=== PATIENT | male | born 1955 | race Caucasian/White ===

== ENCOUNTER 2019-05-04 12:55 | Outpatient (CLI) | payer OTHER, SELFPAY ==
--- NOTE | 2019-05-04 15:00 | NEURO_ITS ---
Patient Number: [id number] Impression: # Complains of numbness of hands. # Carpal Tunnel Syndrome bilaterally, left more than right. # No ulnar neuropathy. # Normal needle/EMG exam. Nerve Conduction Studies Anti Sensory Summary Table Stim Site NR Peak (ms) P-T Amp (?V) Site1 Site2 Delta-P (ms) Dist (cm) Rafita (m/s) Left Median Anti Sensory (2-3nd Digit) Wrist 4.7 13.2 Wrist 2-3nd Digit 4.7 14.0 30 Wrist 4.4 8.8 Wrist 2-3nd Digit 4.7 14.0 30 Right Median Anti Sensory (2-3nd Digit) Wrist 3.9 5.3 Wrist 2-3nd Digit 3.9 14.0 36 Wrist 4.8 20.1 Wrist 2-3nd Digit 3.9 14.0 36 Left Radial Anti Sensory (Base 1st Digit) Wrist 2.1 21.1 Wrist Base 1st Digit 2.1 0.0 Right Radial Anti Sensory (Base 1st Digit) Wrist 2.2 17.9 Wrist Base 1st Digit 2.2 0.0 Left Ulnar Anti Sensory (5th Digit) Wrist 2.3 19.6 Wrist 5th Digit 2.3 14.0 61 Right Ulnar Anti Sensory (5th Digit) Wrist 2.4 32.7 Wrist 5th Digit 2.4 14.0 58 Motor Summary Table Stim Site NR Onset (ms) O-P Amp (mV) Site1 Site2 Delta-0 (ms) Dist (cm) Rafita (m/s) Left Median Motor (Abd Poll Brev) Wrist 4.8 0.3 Elbow Wrist 4.8 28.0 58 Elbow 9.6 0.6 Right Median Motor (Abd Poll Brev) Wrist 4.1 0.7 Elbow Wrist 5.4 28.0 52 Elbow 9.5 0.7 Left Ulnar Motor (Abd Dig Minimi) Wrist 3.1 1.9 A Elbow Wrist 5.1 28.0 55 A Elbow 8.2 1.2 Right Ulnar Motor (Abd Dig Minimi) Wrist 3.0 3.9 A Elbow Wrist 5.4 29.0 54 A Elbow 8.4 2.2 F Wave Studies NR F-Lat (ms) L-R F-Lat (ms) Left Median (Mrkrs) (Abd Poll Brev) 28.25 0.29 Right Median (Mrkrs) (Abd Poll Brev) 28.54 0.29 Left Ulnar (Mrkrs) (Abd Dig Min) 30.12 0.45 Right Ulnar (Mrkrs) (Abd Dig Min) 29.67 0.45 EMG Side Muscle Nerve Root Ins Act Fibs Amp Dur Recrt Comment Right 1stDorInt Ulnar C8-T1 Nml Nml Nml Nml Nml Right Ext Indicis Radial (Post Int) C7-8 Nml Nml Nml Nml Nml Right Ext Digitorum Radial (Post Int) C7-8 Nml Nml Nml Nml Nml Right BrachioRad Radial C5-6 Nml Nml Nml Nml Nml Right PronatorTeres Median C6-7 Nml Nml Nml Nml Nml Right Abd Poll Brev Median C8-T1 Nml Nml Nml Nml Nml Left 1stDorInt Ulnar C8-T1 Nml Nml Nml Nml Nml Left Ext Indicis Radial (Post Int) C7-8 Nml Nml Nml Nml Nml Left Ext Digitorum Radial (Post Int) C7-8 Nml Nml Nml Nml Nml Left BrachioRad Radial C5-6 Nml Nml Nml Nml Nml Left PronatorTeres Median C6-7 Nml Nml Nml Nml Nml Left Abd Poll Brev Median C8-T1 Nml Nml Nml Nml Nml MTDD
== END 2019-05-04 12:56 | disposition home or self-care (01) ==
PROVIDERS: PCP Family Medicine; Visit Provider Nurse Practitioner
DX: G56.03 Carpal tunnel syndrome, bilateral upper limbs (principal)
CPT/HCPCS: 95886; 95911

== ENCOUNTER 2019-11-07 01:34 | Outpatient (CLI) | payer OTHER, SELFPAY ==
[2019-11-07 19:24] LABS: SARS-CoV-2 RNA PCR Negative
== END 2019-11-07 01:35 | disposition home or self-care (01) ==
LOC: ANHCOVIDDT 01:34
PROVIDERS: PCP Family Medicine; Visit Provider Internal Medicine Gastroenterology
DX: Z01.812 Encounter for preprocedural laboratory examination (principal); Z20.828 Contact with and (suspected) exposure to other viral communicable diseases
CPT/HCPCS: 87635; C9803; U0003

== ENCOUNTER 2019-11-09 00:52 | Day surgery (SDC) | payer OTHER, SELFPAY ==
[2019-11-02 12:49] VITALS: BMI 33.5
--- NOTE | 2019-11-09 09:04 | WPDGICN ---
Assessment and Plan Assessment and plan (1) History of rectal cancer: Code(s): Z85.048 - Personal history of other malignant neoplasm of rectum, rectosigmoid junction, and anus Status: Acute Assessment and Plan: Plan is for surveillance exam of his colon. Patient has distant history of rectal cancer Repeat dissected 10 years ago. last exam 5 years ago was unremarkable. (2) Rectal pain: Code(s): K62.89 - Other specified diseases of anus and rectum Status: Acute Assessment and Plan: Patient has new rectal discomfort. This will be evaluated by endoscopy. Plan is for Anusol or preparation H initially. Stool softeners may be of some benefit. GI Consult Note Consult date/time: 11/09/19 09:04 HPI: Juan David Walton is a 64 year old male Seen in evaluation at the request of Dr. Parker. Patient has a history of rectal carcinoma resected 10 years ago. Last colonoscopy for evaluation was 5 years ago. Patient has done well until the last 2 weeks. Over the last 2 weeks has had rectal discomfort. He notices this primarily on sitting. He denies any change in bowel habits. His bowel habits are regular. He denied any blood in his stools. His weight has remained stable. Family history is noncontributory. Review of Systems Review of Systems: All systems reviewed & are unremarkable except as noted in HPI and below PMFSH Past Medical History Medical History (Updated 11/09/19 @ 09:05 by Eric Garcia MD) Essential (primary) hypertension Gout, unspecified History of rectal cancer Hyperlipidemia Type 2 diabetes mellitus without complication, without long-term current use of insulin Social History Social History Smoking status: Never smoker Alcohol intake: current Alcohol use details: 2-3 PER YEAR Substance use: never Substance use type: does not use Living arrangements: alone Spiritual care concerns: No Meds Home Medications and Allergies Home Medications Medication Instructions Recorded Confirmed Type dexmethylphenidate 10 mg tablet 10 mg PO DAILY 01/23/19 11/02/19 History indomethacin 50 mg capsule 50 mg PO TID PRN cap 01/23/19 11/02/19 History multivitamin 1 tablet PO DAILY 01/23/19 11/02/19 History vilazodone 40 mg tablet 40 mg PO DAILY 01/23/19 11/02/19 History zolpidem 10 mg tablet 10 mg PO DAILY tablet 01/23/19 11/02/19 History lovastatin 20 mg tablet 20 mg PO DAILY #90 tablet 07/11/19 11/02/19 Rx metformin 500 mg tablet 500 mg PO BID #180 tablet 08/15/19 11/02/19 Rx allopurinol 300 mg PO DAILY 11/02/19 11/02/19 History lisinopril 40 mg PO DAILY 11/02/19 11/02/19 History Allergies Allergy/AdvReac Type Severity Reaction Status Date / Time No Known Allergies Allergy Unknown Verified 02/14/19 14:25 Exam Narrative: Exam Narrative: Physical exam reveals patient to be alert. Vital signs stable. HEENT exam unremarkable. Lungs are clear to auscultation and percussion. Heart is without murmur or extra sounds. Abdominal exam bowel sounds are present soft nontender with no organomegaly. Digital external rectal exam is unremarkable.
[2019-11-09 09:12] LABS: Glucose Point of Care 116 (65-105)
[2019-11-09 09:14] VITALS: BP 162/81; PULSE 62; RESP 18; TEMP 36.2; O2SAT 100; BMI 34.0
[2019-11-09] MEDS: LACTATED RINGERS 1,000 ML 150 ML IV CONT (09:18)
--- NOTE | 2019-11-09 09:23 | WPDANESEPPF ---
Anes - Initial Pre Proc Eval Procedure: Operation Date: 11/09/19 09:30 Proposed Procedures p Screening Colonoscopy - Eric Garcia MD Date/Time: 11/09/19 09:23 Surgeon: Eric Garcia MD Pre Op Diagnosis: neoplasm screening, hx rectal ca Patient Data Age: 64 Gender: M Height: 5 ft 8 in Weight: 101.6 kg Last Vital Signs Temp 97.1 F L 11/09/19 09:14 Pulse 62 11/09/19 09:14 Resp 18 11/09/19 09:14 BP 162/81 H 11/09/19 09:14 Pulse Ox 100 11/09/19 09:14 Allergies Allergy/AdvReac Type Severity Reaction Status Date / Time No Known Allergies Allergy Unknown Verified 11/09/19 09:12 Home Medications Medication Instructions Recorded Confirmed Type dexmethylphenidate 10 mg tablet 10 mg PO DAILY 01/23/19 11/09/19 History indomethacin 50 mg capsule 50 mg PO TID PRN cap 01/23/19 11/09/19 History multivitamin 1 tablet PO DAILY 01/23/19 11/09/19 History vilazodone 40 mg tablet 40 mg PO DAILY 01/23/19 11/09/19 History zolpidem 10 mg tablet 10 mg PO DAILY tablet 01/23/19 11/09/19 History lovastatin 20 mg tablet 20 mg PO DAILY #90 tablet 07/11/19 11/09/19 Rx metformin 500 mg tablet 500 mg PO BID #180 tablet 08/15/19 11/09/19 Rx allopurinol 300 mg PO DAILY 11/02/19 11/09/19 History lisinopril 40 mg PO DAILY 11/02/19 11/09/19 History Laboratory Tests 11/09/19 09:08 POC Capillary Glucose 116 mg/dl H mg/dl (65-105) Patient hx anesthesia problems: none Family hx anesthesia problems: none PMFSH Past Medical History Medical History (Updated 11/09/19 @ 09:05 by Eric Garcia MD) Essential (primary) hypertension Gout, unspecified History of rectal cancer Hyperlipidemia Type 2 diabetes mellitus without complication, without long-term current use of insulin Social History Social History Smoking status: Never smoker Alcohol intake: current Alcohol use details: 2-3 PER YEAR Substance use: never Substance use type: does not use Living arrangements: alone Spiritual care concerns: No Anes - Eval Final PreProcedure Day of Procedure 11/09/19 09:23 Patient weight: obese Heart: regular rate and rhythm Lungs: clear to auscultation Airway: Mallampati scale class II Neurological: alert and oriented Last oral intake: >/= 8 hours ASA classification: III Emergent: no Anesthetic plan: proceed Anesthesia type and monitoring: general GIVS and standard monitoring Informed Consent: The patient's anesthetic plan and its attendant risks and benefits were discussed with the patient/family/POA. Questions were solicited and answers provided to the satisfaction of the patient/family/POA.
[2019-11-09 10:06] VITALS: BP 115/71; PULSE 67; RESP 15; O2SAT 99
[2019-11-09 10:16] VITALS: BP 119/66; PULSE 54; RESP 19; O2SAT 94
== END 2019-11-09 10:37 | disposition home or self-care (01) ==
PROVIDERS: Visit Provider Internal Medicine Gastroenterology
PROC: 0DJD8ZZ Inspection of Lower Intestinal Tract, Via Natural or Artificial Opening Endoscopic (ICD-10-PCS; CPT 45378; principal; 2019-11-09 09:30)
DX: Z12.11 Encounter for screening for malignant neoplasm of colon (principal); K64.8 Other hemorrhoids; K62.89 Other specified diseases of anus and rectum; Z85.048 Personal history of other malignant neoplasm of rectum, rectosigmoid junction, and anus; I10 Essential (primary) hypertension; E78.2 Mixed hyperlipidemia; E11.9 Type 2 diabetes mellitus without complications; M10.9 Gout, unspecified; Z79.84 Long term (current) use of oral hypoglycemic drugs; E66.9 Obesity, unspecified; Z68.34 Body mass index [BMI] 34.0-34.9, adult
CPT/HCPCS: G0105; J2704; J7120

== ENCOUNTER 2021-06-13 15:19 | Outpatient (CLI) | payer OTHER, SELFPAY ==
--- NOTE | ~2021-06-13 | MR_ITS ---
EXAMINATION: MR knee LT wo con DATE: 06/13/2021 16:09 INDICATION: Left knee pain. TECHNIQUE: Magnetic resonance imaging (MRI) of the left knee was performed without intravenous contra st. Sequences included axial PD-weighted FS FSE, coronal PD-weighted FSE and PD-weighted FS FSE, sagi ttal PD-weighted FSE, and sagittal T2-weighted FS FSE. COMPARISON: None. FINDINGS: Medial compartment: There is a complex tear involving body and posterior horn of medial meniscus. There is shallow partia l-thickness cartilage loss of tibial condyle with mild subchondral edema-like signal intensity involv ing the medial articular surface. There is partial-thickness cartilage loss of femoral condyle, deep at the central articular surface. Osteophytes are noted. Lateral compartment: There is a complex tear involving anterior horn and body of lateral meniscus. There is shallow partia l-thickness cartilage loss of tibial condyle. There is shallow partial-thickness cartilage loss of fe moral condyle. Osteophytes are noted. Patellofemoral compartment: There is full-thickness cartilage loss of patellar lateral facet and median ridge with cortical remod eling and mild subchondral edema-like marrow signal intensity. There is full-thickness cartilage loss of lateral and central trochlea with cortical remodeling and mild subchondral edema-like marrow sign al intensity. Osteophytes are noted. Ligaments and tendons: The anterior cruciate ligament is normal. There is a partial tear of posterior cruciate ligament kasandra acterized by thickening and increased signal intensity. There are changes of prior sprains of fibular collateral ligament and medial collateral ligament characterized by thickening and increased signal intensity approximately. There is mild patellar tendinopathy. Fluid: There is a large knee joint effusion with loose bodies. There is a large Bravo's cyst with loose bodi es. There is mild superficial infrapatellar bursitis. IMPRESSION: 1. Severe chondrosis of patellofemoral compartment, moderate chondrosis of medial compartment, and mi ld chondrosis of lateral compartment. 2. Tears of medial and lateral menisci. 3. Partial tear of posterior cruciate ligament. 4. Large knee joint effusion with loose bodies. 5. Large Bravo's cyst with loose bodies. Reviewed, dictated and finalized at location A. IMPRESSION: 1. Severe chondrosis of patellofemoral compartment, moderate chondrosis of medi al compartment, and mild chondrosis of lateral compartment. 2. Tears of medial and lateral menisci. 3. Partial tear of posterior cruciate ligament. 4. Large knee joint effusion with loose bodies. 5. Large Bravo's cyst with loose bodies.
== END 2021-06-13 15:20 | disposition home or self-care (01) ==
PROVIDERS: PCP Family Medicine; Visit Provider Nurse Practitioner
DX: M23.42 Loose body in knee, left knee (principal); S83.282A Other tear of lateral meniscus, current injury, left knee, initial encounter; S83.242A Other tear of medial meniscus, current injury, left knee, initial encounter; X58.XXXA Exposure to other specified factors, initial encounter; M25.462 Effusion, left knee
CPT/HCPCS: 73721

== ENCOUNTER 2021-12-03 09:41 | Outpatient (CLI) | payer OTHER, SELFPAY ==
--- NOTE | 2021-12-03 09:46 | ECG_ITS ---
Measurements Intervals [place] Rate: 72 P: -1 KS: 194 QRS: -89 QRSD: 140 T: 2 QT: 379 QTc: 417 Interpretive Statements SINUS RHYTHM RIGHT BUNDLE BRANCH BLOCK [120+ ms QRS DURATION, UPRIGHT V1, 40+ ms S IN I/aVL/V4/V5/V6] LEFT ANTERIOR FASCICULAR BLOCK [QRS AXIS <= -45, QR IN I, RS IN II] NO PREVIOUS ECG AVAILABLE FOR COMPARISON Electronically Signed On 12-03-2021 13:14:24 CDT by Delmis Chowdhury M.D.
[2021-12-03 10:30] LABS: Basophils Absolute Auto 0.1 K/mm3 (0.0-0.1); Basophils Percent Auto 0.8 % (0.2-1.2); Eosinophils Absolute Auto 0.1 K/mm3 (0-0.3); Eosinophils Percent Auto 1.5 % (0-4.4); Hematocrit 43.4 % (42.0-52.0); Immature Granulocyte Absolute 0.03 K/mm3 (0.00-0.031); Immature Granulocyte Percent A 0.4 % (0-0.5); Lymphocytes Absolute Auto 2.37 K/mm3 (0.9-3.2); Lymphocytes Percent Auto 32.6 % (18.3-44.2); Mean Corpuscular HGB Conc 34.6 g/dl (32-36); Mean Corpuscular Hemoglobin 29.9 pg (26-34); Mean Corpuscular Volume 86.5 fl (80-100); Mean Platelet Volume 8.9 fl (7.4-10.4); Monocytes Absolute Auto 0.6 K/mm3 (0.1-0.6); Monocytes Percent Auto 8.5 % (2.6-8.5); Neutrophils Absolute Auto 4.1 K/mm3 (1.3-6.7); Neutrophils Percent Auto 56.2 % (45.5-73.1); Platelet Count Result 261 k/mm3 (150-375); Red Blood Count 5.02 M/mm3 (4.6-6.20); Red Cell Distribution Width 13.1 % (11.5-14.5); White Blood Count 7.3 K/mm3 (4.5-10.0)
[2021-12-03 10:44] LABS: Alanine Aminotransferase 21 U/L (6-50); Albumin Level 4.2 g/dL (3.5-5.1); Alkaline Phosphatase 90 U/L (38-126); Anion Gap 9 mmol/L (8-16); Aspartate Amino Transferase 27 U/L (17-59); Bilirubin,Total 0.6 mg/dL (0.2-1.3); Blood Urea Nitrogen 15 mg/dL (9-20); Calcium 8.7 mg/dL (8.4-10.2); Carbon Dioxide 29 mmol/L (22-30); Chloride 97 mmol/L (98-107); Estimated Glomerular Filt Rate > 60; Glucose 79 mg/dL (65-110); Potassium 4.2 mmol/L (3.4-5.0); Sodium 135 mmol/L (137-145)
[2021-12-03 11:15] LABS: Carcinoembryonic Antigen 1.4 ng/mL (0.0-3.0)
== END 2021-12-03 09:42 | disposition home or self-care (01) ==
LOC: ANHSURGERY 09:43
PROVIDERS: PCP Family Medicine; Visit Provider Surgery
DX: K60.3 Anal fistula (principal); E11.9 Type 2 diabetes mellitus without complications; I44.4 Left anterior fascicular block; I45.10 Unspecified right bundle-branch block
CPT/HCPCS: 36415; 80053; 82378; 85025; 93005

== ENCOUNTER 2021-12-15 01:03 | Day surgery (SDC) | payer OTHER, SELFPAY ==
[2021-12-01 10:02] VITALS: BMI 36.6
--- NOTE | 2021-12-01 10:11 | PC.NURSE ---
PRE-OP INSTRUCTIONS, PLEASE READ CAREFULLY Report to the Outpatient Waiting Room, entrance under the green pavilion located off [facility], at time _0600_ on date _12/15/21_. Planned Procedure Time: _0730_. Time changes happen often and if your time is changed the preop area will call you the afternoon before. - You and your visitor will be asked to self-screen and do not enter if you have any COVID symptoms. - We encourage only one visitor and NO visitors under age 16 are allowed at this time. Your visitor will receive communication by the phone number that is given day of service. - The patient visitor is requested to social distance or may leave the building when not with patient due to restrictions. - A mask is required within the hospital. Patients may have clear liquids (water, carbonated beverages, clear teas, apple juice) until 3 hours prior to surgery (0430 AM) with a maximum of 20 ounces. - No food from midnight until time of surgery - Infants may have breast milk until 4 hours before surgery, infant formula 6 hours prior to surgery. - Children will be allowed to drink immediately following surgery. If applicable, please bring a bottle or sippy cup to assist with drinking. Juice, water, soda, and popsicles are readily available. For infants on formula, please bring formula the day of surgery. Pacifiers are allowed. Take the following medications with a SIP of water the morning of surgery: _NONE_ Medications to discontinue per ANESTHESIA - _MULTIVITAMIN 3 DAYS PRIOR TO SURGERY, Date to take last dose 12/11/21_ Please no make-up, nail english, hairspray, perfume, deodorant, or body powder the day of surgery. No jewelry (including any body piercings) or valuables the day of surgery, leave them at home. Please take a shower or bath the night before, or the morning of, surgery with an antibacterial soap. Wear comfortable, loose fitting clothing. - Jewelry must be removed prior to entering the operating room. Rings and piercings that are not removed may be cut off. - The hospital will not accept responsibility for valuables. - Please leave all valuables, including medications, at home the day of surgery. If you are going home after surgery, a licensed four horse hitch driver must drive you home. - NO public transportation without another adult. - We recommend that an adult stay with you for 24 hours following discharge. - We also recommend that you do not drive, make important decision, drink alcoholic beverages, or take any drugs that were not prescribed by your health care provider for at least 24 hours after your discharge time. Follow any additional instructions given to you from your surgeon. If you or anyone in your household have experienced Covid symptoms in the past week, please notify your surgeon or the nurse liaison at the phone number below for possible testing. Telephone instructions given to ___PT and asked if any additional questions and then verbalized understanding. Patient advised to call surgeon office or pre surgery nurse liaison [phone] if any additional questions.
[2021-12-15] VITALS (8 sets, daily range): BP systolic 142–171; BP diastolic 71–92; PULSE 54–66; RESP 14–16; TEMP 36.4; O2SAT 96–100
[2021-12-15] MEDS: LACTATED RINGERS 1,000 ML 30 ML IV CONT (06:55)
--- NOTE | 2021-12-15 07:05 | WPDANESEPPF ---
Anes - Initial Pre Proc Eval Procedure: Operation Date: 12/15/21 07:30 Proposed Procedures p Rectal Exam Under Anesthesia with Fistulotomy - Sukumar Escobar MD Date/Time: 12/15/21 07:05 Surgeon: Sukumar Escobar MD Pre Op Diagnosis: anal fistula Patient Data Age: 66 Gender: M Height: 1.73 m Weight: 100.5 kg Last Vital Signs Temp 97.5 F L 12/15/21 06:26 Pulse 58 L 12/15/21 06:26 Resp 16 12/15/21 06:26 BP 142/71 H 12/15/21 06:26 Pulse Ox 98 12/15/21 06:26 O2 Del Method Room Air 12/15/21 06:26 Allergies Allergy/AdvReac Type Severity Reaction Status Date / Time No Known Allergies Allergy Unknown Verified 12/15/21 06:17 Home Medications Medication Instructions Recorded Confirmed Type multivitamin 1 tablet PO DAILY 01/23/19 12/15/21 History zolpidem 10 mg tablet (Ambien) 10 mg PO DAILY PRN Sleep 01/23/19 12/15/21 History dexmethylphenidate 10 mg 10 mg PO DAILY PRN Cough 05/21/21 12/15/21 History capsule,extended release [id number] (Focalin XR) metformin 500 mg tablet 500 mg PO BID #180 tabs 08/28/21 12/15/21 Rx allopurinol 300 mg tablet 300 mg PO DAILY #90 tabs 10/01/21 12/15/21 Rx lisinopril 40 mg tablet 40 mg PO DAILY #90 tabs 10/01/21 12/15/21 Rx lovastatin 20 mg tablet 20 mg PO QHS #90 tabs 10/01/21 12/15/21 Rx hydrocortisone 2.5 % topical cream 1 applic RECTAL DAILY PRN 10/28/21 12/15/21 Rx with perineal applicator hemorrhoids #30 grams (Anusol-HC) indomethacin 50 mg capsule 50 mg PO TID PRN Inflammation #30 10/28/21 12/15/21 Rx caps vilazodone 20 mg tablet 20 mg PO DAILY 12/01/21 12/15/21 History Patient hx anesthesia problems: none Family hx anesthesia problems: none Results Review: All pre-operative results and documents have been reviewed as part of the pre-operative evaluation. [facility] Past Medical History Medical History Essential (primary) hypertension Gout, unspecified History of rectal cancer Hyperlipidemia Type 2 diabetes mellitus without complication, without long-term current use of insulin Surgical History Surgical History History of colon resection Family History Family History Sibling Family history of alcoholism Father Cerebrovascular accident Mother Family history of malignant neoplasm of breast in first degree relative Other Heart disease Social History Social History Smoking status: Never smoker Second hand tobacco smoke exposure: No Alcohol intake: current Alcohol use details: 2-3 DRINKS/YEAR Substance use: never Substance use type: does not use Living arrangements: alone Spiritual care concerns: No Anes - Eval Final PreProcedure Day of Procedure 12/15/21 07:05 Patient weight: obese Heart: regular rate and rhythm Lungs: clear to auscultation Airway: Mallampati scale class III Neurological: alert and oriented Last oral intake: >/= 8 hours ASA classification: III Emergent: no Anesthetic plan: proceed Anesthesia type and monitoring: general ETT and standard monitoring Results Review: All pre-operative results and documents have been reviewed as part of the pre-operative evaluation. Informed Consent: The patient's anesthetic plan and its attendant risks and benefits were discussed with the patient/family/POA. Questions were solicited and answers provided to the satisfaction of the patient/family/POA.
[2021-12-15] MEDS: KETOROLAC 15 MG/ML VIAL (*BKC) IV PUSH (07:14)
[2021-12-15] MEDS: ACETAMINOPHEN 500 MG TABLET 1000 MG PO (07:14)
--- NOTE | 2021-12-15 07:16 | WPDHPUPDATE1 ---
History and Physical Update Update Date/Time: 12/15/21 07:16 History and Physical has been reviewed, including an updated exam of the patient. There are NO changes in the patient's condition. Risks, benefits, and alternatives have been discussed and questions answered. Patient agrees to proceed with procedure.
[2021-12-15] MEDS: ceFAZolin 2 GM/D5W 50 ML 2 GM/50 ML BAG IVPB (07:27)
[2021-12-15 07:50] LABS: Glucose Point of Care 128 mg/dl (65-105)
[2021-12-15] MEDS: BUPIVACAINE/EPINEPHRINE 0.25% 50 ML VIAL 20 ML INFILTRATE (08:03)
[2021-12-15] MEDS: METHYLENE BLUE 0.5% INJ 10 ML AMPULE 20 ML IRRIGATION (08:04)
[2021-12-15 08:36] LABS: Glucose Point of Care 144 mg/dl (65-105)
--- NOTE | 2021-12-15 08:49 | W.PM.PROC2 ---
Procedure Note - Detailed Date of Procedure 12/15/21 Pre-op Diagnosis 1. Posterior anal fistula 2. Thrombosed right anterior lateral external hemorrhoid Post-op Diagnosis Same Procedure Performed 1. Posterior anal fistulotomy 2. Excision of right anterolateral thrombosed external hemorrhoid with anoplasty 3. Anorectal examination under anesthesia. Surgeon Sukumar Escobar MD Brick Chimney Supervisor MEENAKSHI Maloney, OR 1st assist Anesthesia General Indications Patient has had chronic periodic drainage from the ano-rectal area which it occurs intermittently and is occasionally bloody and purulent. Findings Patient had a fairly short posterior anal fistula which opened on the inside just above the internal anal sphincter mechanism. Patient also found to have an approximately 1 x 0.5 cm oval thrombosed external hemorrhoid in the right anterior lateral position. Description of Procedure Patient was brought to the operating room and general anesthesia was induced via oral tracheal tube while he was on the OR cart. He was then rolled and carefully padded, face down in the modified knee-chest position. He was then appropriately prepped with Betadine and carefully draped. Subsequent examination under anesthesia was completed using the 2 smaller anal retractors. Initial examination under anesthesia revealed a opening directly posterior suggestive of a external opening of an anal fistula. Also noted was a right anterior lateral possible thrombosed external hemorrhoid with a 1 x 0.5 cm oval hard nodule present. This was right at the anal verge. Deeper inspection of the rectum revealed no significantly large internal hemorrhoids at this time. Following this we 1st addressed the fistula. A 20 gauge Angiocath was opened in a sterile manner and inserted into the external opening. As I was gently inserting this it came out through the tract superficially just above the internal anal sphincter muscle posteriorly. Therefore it was removed and replaced with a lacrimal duct probe along the length of the fistula which was probably about 1 cm long. Local anesthetic using 0.25% Marcaine with epinephrine was infiltrated around this area and allowed to work for 30 seconds. Following this a needle-point Bovie cautery was used to open the skin directly over the probe and hemostasis achieved. I extended the internal incision about 1 cm higher to be sure that there was no extending tract and did not see any sign of an extending tract going more cephalad. Following this we addressed the right anterior lateral external hemorrhoid. A medium-size anal retractor was inserted and positioned to give a clear view of the right richmond-lateral hemorrhoidal complex. Local anesthetic was infiltrated underneath this external hemorrhoid and around it using 0.25% Marcaine with epinephrine. Following this with good visualization and retraction a elliptical excision was started at the anal verge and brought around the skin overlying the small external hemorrhoid that had a palpable nodule within it. This ended about 2 cm distal to the anal verge. Because of the swelling with local anesthetic injection after initial excision I did not feel that I had the nodule within the excision, therefore some further palpation within the wound revealed the nodule slightly deeper. This was grasped with a hemorrhoid grasping forceps and elevated and using needlepoint Bovie cautery I carefully excise this from the underlying subcutaneous tissues. As I did this I did open a clotted hemorrhoidal vein and then deepened the excision to remove all of the abnormally clotted veins in the area. I then used Bovie cautery to achieve hemostasis in the wound. Following this anoplasty was completed by starting a 3-0 Vicryl at the upper end of the incision internally and running this with every other bite grasping a little bit of the underlying muscular tissue. It was run out to the external end of the incision closing it completely and burying
== END 2021-12-15 10:17 | disposition home or self-care (01) ==
PROVIDERS: PCP Family Medicine; Visit Provider Surgery
PROC: (CPT 46275; principal; 2021-12-15 07:30)
DX: K60.3 Anal fistula (principal); K64.5 Perianal venous thrombosis; E11.9 Type 2 diabetes mellitus without complications; I10 Essential (primary) hypertension; E78.5 Hyperlipidemia, unspecified; M10.9 Gout, unspecified; Z85.048 Personal history of other malignant neoplasm of rectum, rectosigmoid junction, and anus; Z79.84 Long term (current) use of oral hypoglycemic drugs; E66.9 Obesity, unspecified; Z68.33 Body mass index [BMI] 33.0-33.9, adult
CPT/HCPCS: 46275; 46320; 82948; 88304; A9270; J0330; J0690; J1885; J2250; J2405; J2704; J3010; J7120; Q9968

== ENCOUNTER 2022-04-06 09:08 | Emergency (ER) | payer OTHER, SELFPAY ==
--- NOTE | 2022-04-06 09:22 | ED.URI ---
HPI - URI/Sore Throat General Chief Complaint: Upper Respiratory Infection Stated Complaint: cov pso Time Seen by Provider: 04/06/22 10:21 Source: patient and RN notes reviewed Mode of arrival: ambulatory Limitations: no limitations History of Present Illness HPI Narrative: 67-year-old male presents concern for positive COVID test. Reports over 2 week history of symptoms mostly have resolved except for his sinus congestion and pressure. He denies cough, shortness of breath, fever, aches, chills sweats. Reports fatigue. Reports he has been using [employer] elicited complaint: rhinorrhea and nasal congestion Related Data Home Medications Medication Instructions Recorded Confirmed multivitamin 1 tablet PO DAILY 01/23/19 04/06/22 zolpidem 10 mg tablet (Ambien) 10 mg PO DAILY PRN Sleep 01/23/19 04/06/22 dexmethylphenidate 10 mg 10 mg PO DAILY PRN Cough 05/21/21 04/06/22 capsule,extended release [id number] (Focalin XR) vilazodone 20 mg tablet 20 mg PO DAILY 12/01/21 04/06/22 Allergies Allergy/AdvReac Type Severity Reaction Status Date / Time No Known Allergies Allergy Unknown Verified 04/06/22 09:35 Review of Systems Review of Systems: CONSTITUTIONAL: Denies malaise, chills, sweats, or fever. Reports fatigue EYES: Denies visual changes, redness, or discharge. ENT: Reports rhinorrhea, congestion, sinus pain. Denies otalgia and sore throat. CARDIOVASCULAR: Denies chest pain, palpitations, or edema. RESPIRATORY: Denies cough. Denies dyspnea. GASTROINTESTINAL: Denies abdominal pain, nausea, vomiting, diarrhea SKIN: Denies rash or itching. MUSCULOSKELETAL: Denies myalgia. NEUROLOGIC: Denies headache. All systems reviewed & are unremarkable except as noted in HPI and below PMFSH Past Medical History Medical History (Updated 04/06/22 @ 10:21 by Mercedes Pacheco NP) Essential (primary) hypertension Gout, unspecified History of rectal cancer Hyperlipidemia Type 2 diabetes mellitus without complication, without long-term current use of insulin Surgical History Surgical History (Updated 12/30/21 @ 09:00 by Dipti Patrick) Anal fistula 12/15/2021 - Posterior anal fistulotomy, excision of right anterolateral thrombosed external hemorrhoid with anoplasty, anorectal examination under anesthesia History of colon resection Family History Family History Sibling Family history of alcoholism Father Cerebrovascular accident Mother Family history of malignant neoplasm of breast in first degree relative Other Heart disease Social History Social History Smoking status: Never smoker Second hand tobacco smoke exposure: No Alcohol intake: current Alcohol use details: 2-3 DRINKS/YEAR Substance use: never Substance use type: does not use Living arrangements: alone Spiritual care concerns: No Comments At time of signature, agree with nursing past medical, surgical, social and family history. There is no relevant family history pertinent to the presenting complaint Exam Narrative: GENERAL: Well-appearing, well-nourished, and in no acute distress. HEAD: Normocephalic EYES: PERRLA, conjunctivae clear ENT: Nares clear, turbinates edematous and erythematous, yellow discharge. Mucous membranes moist. TM pearly trevino with dull light reflex bilaterally; no tragal tenderness. Oropharynx not erythematous without lesions. Tonsils not enlarged and without exudate, no drooling, no hoarseness, no trismus, uvula midline. NECK: Supple. No lymphadenopathy CHEST: Clear to auscultation, breath sounds equal. No wheezing, rhonchi, rales, or stridor. No respiratory distress, speaks in full sentences. HEART: Regular rate and rhythm. No murmur heard. SKIN: Warm, dry, no rash. NEURO: Alert and oriented x3. PSYCH: Normal mood and affect Course Course Emergency Course: Patient is aware of diagnosis,
[2022-04-06 09:32] VITALS: BP 142/68; PULSE 79; RESP 16; TEMP 36.2; O2SAT 97
== END 2022-04-06 10:24 | disposition home or self-care (01) ==
PROVIDERS: Emergency Provider Nurse Practitioner; PCP Family Medicine
DX: J01.90 Acute sinusitis, unspecified (principal); B96.89 Other specified bacterial agents as the cause of diseases classified elsewhere; I10 Essential (primary) hypertension; E78.5 Hyperlipidemia, unspecified; E11.9 Type 2 diabetes mellitus without complications
CPT/HCPCS: 99213; G0463

== ENCOUNTER 2025-01-17 13:49 | Outpatient (CLI) | payer OTHER, SELFPAY ==
--- NOTE | ~2025-01-17 | PE_ITS ---
EXAMINATION: PET_PETPSMAST_PT DATE: 01/18/2025 07:47 INDICATION: Prostate cancer TECHNIQUE: 4.791 mCi of Illucix Ga-[id number]) was administered i.v. Low dose computed tomography (CT) images were acquired from the base of the brain to the base of the brain to the proximal thighs for attenuation correction and anatomic localization. Positron emission tomography (PET) images were acquired in the same distribution beginning 75 minutes after injection. Images including fused PET/CT images were reconstructed in axial, coronal, and sagittal planes. Automated exposure control technique was employed. The dose-length product was 1005.10mGy-cm. COMPARISON: None FINDINGS: Head/neck: Typical pattern of symmetric physiologic increased activity in the lacrimal, parotid and submandibular glands as well as along the mucosa of the nasal and oral cavities, pharynx and hypopharynx. No pathologically enlarged cervical lymphadenopathy or suspicious foci of increased uptake in the visualized head or neck. Chest: No pulmonary nodules, pneumonia, pulmonary edema or pleural effusion. Heart size is normal. No pericardial effusion. Ectatic ascending thoracic aorta measuring up to 4.1 cm in maximal diameter. No pathologically enlarged or PSMA avid thoracic lymphadenopathy. Abdomen/pelvis/proximal thighs: Physiologic renal accumulation and excretion of activity in the kidneys, bladder and along portions of ureters. Photopenic defect associated with a 3.8 cm right renal cyst. Prostatomegaly measuring 5.7 x 4.9 cm. There are 3 foci of increased activity in the prostate consistent with primary prostate cancer. The most intense is located inferiorly on the left with maximal SUV of 11 and with additional small foci positioned more cephalad in the right posterior prostate with maximal SUV of 7.2 and in the left posterior prostate with maximal SUV of 5.6. Normal degree and slightly heterogenous pattern of increased uptake throughout the liver and spleen without radiologic correlate or dominant PSMA avid lesion. The gallbladder, pancreas and bilateral adrenal glands are normal. Moderate uptake scattered throughout the bowels with typical duodenal and proximal jejunal predominance and without radiologic correlate, also likely physiologic. No other abnormal foci of increased uptake or pathologically enlarg ed lymphadenopathy in the abdomen, pelvis or proximal thighs. Musculoskeletal: Severe cervical and lumbar spondylosis. No suspicious lytic, blastic or abnormally PSMA avid bone lesions. IMPRESSION: 1. 3 foci of increased uptake in the prostate, and with prompt the left inferiorly consistent with primary prostate cancer. No lesions suspicious for metastatic disease. Reviewed, dictated and finalized at location A. [facility] IMPRESSION: 1. 3 foci of increased uptake in the prostate, and with prompt the left inferio rly consistent with primary prostate cancer. No lesions suspicious for metastat ic disease.
== END 2025-01-17 13:50 | disposition home or self-care (01) ==
PROVIDERS: PCP Family Medicine; Visit Provider Urology
DX: C80.1 Malignant (primary) neoplasm, unspecified (principal); Z19.1 Hormone sensitive malignancy status
CPT/HCPCS: 78815; A9596